=== PATIENT | female | born 1985 | race Caucasian/White ===

== ENCOUNTER 2017-09-26 21:04 | Emergency (ER) | payer SELFPAY ==
[2017-09-26] MEDS ORDERED: ALUM & MAG HYDROX-SIMETHICONE 30 ML UD PO ONE (21:05)
[2017-09-26] MEDS ORDERED: ASPIRIN TABLET 325 MG TAB PO ONE (21:19)
[2017-09-26] MEDS ORDERED: SODIUM CHLORIDE 0.9% (FLUSH) 10 ML SYG IV PRN ×2 (21:19)
[2017-09-26 21:29] VITALS: TEMP 98.9
--- NOTE | 2017-09-26 21:36 | RAD ---
EXAM DESCRIPTION: Chest,1 View CLINICAL HISTORY: chest pain COMPARISON: None. FINDINGS: Cardiac silhouette is within normal limits. There is no focal parenchymal or pleural disease. Visualized osseous structures are within normal limits. IMPRESSION: No evidence of acute cardiopulmonary disease. Electronically signed by: Aris Fink 09/26/2017 9:34 PM CDT
[2017-09-26] MEDS ORDERED: ALUM & MAG HYDROX-SIMETHICONE 30 ML, LIDOCAINE VISCOUS 2% 15 ML PO ONE ×2 (21:56)
[2017-09-26] MEDS ORDERED: LIDOCAINE HCL 2% (MOUTH-THROAT) 15 ML UD ONE (21:59)
--- NOTE | 2017-09-26 22:51 | ED.PDOC ---
History of Present Illness - General Chief Complaint: Chest Pain/OK Stated Complaint: chest pain Time Seen by Provider: 09/26/17 21:19 Source: patient Exam Limitations: no limitations - History of Present Illness Initial Comments: PT'S ADDERALL DOSE WAS INCREASED LAST WEEK. EVER SINCE THEN SHE FEELS PALPITATIONS, CHEST PRESSURE, AND FEELS THOUGH SHE IS "CRAWLING OUT OF HER SKIN". SHE ALSO C/O INDIGESTION FOR WHICH SHE TAKES ZANTAC. PER HER ROOMMATE FRIEND, SHE INGESTS SUBSTANCES THAT WORSEN GERD AND COULD CONTRIBUTE TO ABOVE SX: SMOKES AND DRINKS 4 ESPRESSOS PER DAY. Severity: severe Location: substernal, epigastric Activities at Onset: none Prior Chest Pain/Cardiac Workup: no prior chest pain Worsening Factors: other - LAYING SUPINE Associated Symptoms: denies symptoms Allergies/Adverse Reactions: Allergies Penicillins Allergy (Verified 09/26/17 21:19) Review of Systems - Review of Systems Constitutional: Denies: diaphoresis, fever EENTM: States: no symptoms reported Respiratory: States: no symptoms reported. Denies: cough, short of breath Cardiology: States: chest pain, palpitations Gastrointestinal/Abdominal: States: other - GERD. Denies: constipation, diarrhea, nausea Genitourinary: States: no symptoms reported Musculoskeletal: States: no symptoms reported Skin: States: no symptoms reported Neurological: States: no symptoms reported Endocrine: States: no symptoms reported Hematologic/Lymphatic: States: no symptoms reported All other Systems: Reviewed and Negative Past Medical History (General) - Patient Medical History Hx Seizures: No Hx Stroke: No Hx Dementia: No Hx Asthma: No Hx of COPD: No Hx Cardiac Disorders: No Hx Congestive Heart Failure: No Hx Pacemaker: No Hx Hypertension: No Hx Thyroid Disease: No Hx Diabetes: No Hx Gastroesophageal Reflux: No Hx Renal Disease: No Hx of HIV: No Hx MRSA: No Surgical History: no surgical history - Vaccination History Hx Tetanus, Diphtheria Vaccination: No Hx Influenza Vaccination: Yes Hx Pneumococcal Vaccination: No Immunizations Up to Date: No - Social History Hx Tobacco Use: Yes - Triage Comment ED Triage Comment: Patient states she is feeling "Odd" and having chest pain, with palpitations, heart burn and "feeling weird inside says she cant describe the feeling but states she believes she feels like it is her adderall dose causing her symptoms. Family Medical History - Family History Mother Family History: No Known Living Status: Still Living Physical Exam - Physical Exam General Appearance: Alert, Well Hydrated Eyes, Ears, Nose, Throat Exam: PERRL/EOMI, normal ENT inspection Neck: non-tender, full range of motion, supple, normal inspection, other - NO JVD. NO BRUIT. Respiratory: chest non-tender, lungs clear, normal breath sounds, no respiratory distress Cardiovascular/Chest: normal peripheral pulses, regular rate, rhythm, no edema, no gallop, no JVD, no murmur Peripheral Pulses: radial,right: 2+, radial,left: 2+ Gastrointestinal/Abdominal: normal bowel sounds, non tender, soft Extremity: normal range of motion, normal inspection Neurologic: no motor/sensory deficits, alert Skin Exam: normal color, warm/dry Lymphatic: no adenopathy Progress - Progress Progress: 09/27/17 00:42 W/U NEG: BNP, CARDIAC ENZ X 2, COAGS, CXR. CBC MILD WBC ELEV AT 11.9 BUT NO OTHER S/SX OF IFXN. CMP POTASSIUM SLIGHTLY LOW AT 3.2 EKG SLIGHTLY TACHYCARDIC AT 111 WITH 1[address] DEGREE AV BLOCK. REPEAT NL AT 99 BPM SINUS WITH 1ST DEGREE AV BLOCK. NO ST ELEVATION OR CONCERNS. CP FOR SEVERAL DAYS, THUS DO NOT NEED TO ADMIT FOR SERIAL CARDIAC ENZYMES. H/O GERD. SX IMPROVED FROM GI COCKTAIL. THAT ALONG WITH SMOKING, HIGH CAFFEINE USE, AND ADDERALL PREDISPOSE TO GERD AND LEND TOWARD PALPITATIONS. I COUNSELED PT FOR SMOKING CESSATION, LIMIT CAFFEINE, AND D/W DR ABOUT POSSIBLY DECREASING ADDERALL DOSE. Departure - Departure Clinical Impression: Gastroesophageal reflux disease, Atypical chest pain, Heart palpitations Disposition: Discharge to Home or Self Care Condition: Good Departure Forms: ED Discharge - Pt. Copy, Patient Portal Self Enrollment Instructions: DI for Chest Pain Diet: resume usual diet Activity: increase activity as tolerated Additional Instructions: Please follow-up with your regular doctor regarding you Adderall and symptoms. Please try to stop or decrease smoking and limit caffeine use, as these can trigger chest pains and worsen reflux indigestion symptoms.
[2017-09-27 00:10] VITALS: BP 137/84; O2SAT 97
== END 2017-09-27 01:22 | disposition home or self-care (01) ==
LOC: ER 21:04
DX: R07.89 Other chest pain (principal); R00.2 Palpitations; K21.9 Gastro-esophageal reflux disease without esophagitis

== ENCOUNTER → 2017-09-29 | Outpatient (CLI) | payer OTHER | LOC: YCFC.O 09:06 | PROVIDERS: ATTEND Nurse Practitioner Family | DX: E87.6 Hypokalemia (principal); D72.829 Elevated white blood cell count, unspecified; R00.2 Palpitations ==